=== PATIENT | female | born 1975 | race Caucasian/White ===

== ENCOUNTER 2018-09-02 19:49 | Emergency (ER) | payer OTHER ==
[~2018-09-02] VITALS: Ht 172.7 cm; Wt 72.6 kg
[2018-09-02] MEDS ORDERED: CLONAZEPAM0.125 MG (20:07)
== END 2018-09-03 01:36 | disposition home or self-care (01) ==
LOC: ER 19:49
DX: J11.1 Influenza due to unidentified influenza virus with other respiratory manifestations (principal)

== ENCOUNTER 2018-10-02 12:09 | Outpatient (CLI) | payer OTHER ==
[~2018-10-02 12:09] MED LIST: CLONAZEPAM0.125 MG
== END 2018-10-02 12:16 | disposition home or self-care (01) ==
LOC: LAB 12:09
DX: J06.9 Acute upper respiratory infection, unspecified (principal); J11.89 Influenza due to unidentified influenza virus with other manifestations

== ENCOUNTER 2018-12-02 18:09 | Outpatient (CLI) | payer OTHER | END 2018-12-02 19:00 | disposition home or self-care (01) | LOC: RAD 18:09 | DX: S60.00XA Contusion of unspecified finger without damage to nail, initial encounter (principal) ==

== ENCOUNTER 2019-01-24 09:52 | Outpatient (CLI) | payer OTHER | END 2019-01-24 09:58 | disposition home or self-care (01) | LOC: LAB 09:52 | DX: R05 Cough (principal); J11.1 Influenza due to unidentified influenza virus with other respiratory manifestations ==